=== PATIENT | female | born 1980 | race African-American/Black ===

== ENCOUNTER 2020-10-18 14:00 | Emergency (ER) | payer OTHER, SELFPAY ==
[2020-10-18 14:54] VITALS: BP 130/80; PULSE 100; RESP 20; TEMP 36.8; O2SAT 100
--- NOTE | 2020-10-18 16:13 | ED.SKABFB ---
HPI - Skin/Abscess/Foreign Bdy General Chief complaint: Skin/Abscess/Foreign Body Stated complaint: Dry Hands Time Seen by Provider: 10/18/20 16:03 Source: patient Mode of arrival: EMS Limitations: no limitations History of Present Illness HPI narrative: This patient is a 40 year old female with history of anxiety who presents for evaluation of dry hands. She told triage that she has been having an issue with dry hands for years. She has been evaluated at [facility] and [facility]. She reports she feels better now that she is back in a room. She denies dry hands now. She denies hand pain. She denies shortness of breath, chest pain, fever ,abdominal pain or joint swelling. She does not that she used methamphetamine 2 weeks ago and she seems to have more issues around meth use. Related Data Allergies Allergy/AdvReac Type Severity Reaction Status Date / Time latex Allergy Unknown Verified 10/18/20 16:02 Review of Systems Review of Systems: All systems reviewed & are unremarkable except as noted in HPI and below Constitutional: Constitutional: Denies chills and Denies fever(s) ENT: Denies sore throat Cardiovascular: Cardiovascular: Denies chest pain and Denies radiating jaw, neck or arm pain Respiratory: Respiratory: Denies cough and Denies dyspnea Gastrointestinal: Gastrointestinal: Denies abdominal pain, Denies nausea and Denies vomiting Musculoskeletal: Musculoskeletal: Denies arthralgias and Denies joint swelling [facility] Past Medical History Medical History (Updated 10/19/20 @ 00:00 by Vaughn Hathaway) Anxiety Social History Social History (Updated 10/18/20 @ 16:17 by Lay Grey MD) Smoking status: Current every day smoker Substance use type: methamphetamine Gender identity (if verbalized by the patient): Female Exam Const: General: no acute distress and alert Orientation/consciousness: patient oriented x3 Eyes: EOM: EOMs intact bilaterally Resp: Effort & Inspection: normal respiratory effort and no retractions Auscultation: clear to auscultation bilaterally Cardio: Rate: regular rate Rhythm: regular rhythm Heart sounds: no murmurs GI: Inspection: non-distended Auscultation: normal bowel sounds Other: nontender Skin: Rashes: no rashes Other: healed lesions to chest, hands are dry but no cracking, no joint swelling Neuro: General: patient oriented x3 and moves all extremities Psych: Affect: Anxious affect present Course Reevaluation(s) Reevaluation #1: Patient has no symptoms now. I discussed with patient that she will be discharged. Date: 10/18/20 Time: 16:18 Vital Signs Vital signs: Vital Signs Temperature 98.2 F 10/18/20 14:54 Pulse Rate 100 10/18/20 14:54 Respiratory Rate 20 10/18/20 14:54 Blood Pressure 130/80 10/18/20 14:54 Pulse Oximetry 100 10/18/20 14:54 Temperature 98.2 F 10/18/20 14:54 Pulse Rate 98 10/18/20 16:34 Respiratory Rate 20 10/18/20 16:34 Blood Pressure 138/78 10/18/20 16:34 Pulse Oximetry 100 10/18/20 16:34 Discharge Plan Discharge Clinical Impression: Acute eczema of hand Patient Disposition: Home, Self-Care Condition: Stable Instructions: Antibiotic Form, Eczema (ED) Additional Instructions: Today you were evaluated for hand dryness. Please read discharge instructions for help with how to moisturize. Follow up with your primary care physician. Follow-up/Referrals: PHYSICIAN,[facility] [Primary Care Provider] - Edilberto Zacarias MD [Physician] -
[2020-10-18 16:34] VITALS: BP 138/78; PULSE 98; RESP 20; O2SAT 100
== END 2020-10-18 16:35 | disposition home or self-care (01) ==
PROVIDERS: Emergency Provider General Practice
DX: L30.9 Dermatitis, unspecified (principal); F17.200 Nicotine dependence, unspecified, uncomplicated
CPT/HCPCS: 99281